=== PATIENT | male | born 1955 | race Caucasian/White ===

== ENCOUNTER 2017-03-07 14:27 | Observation (INO) | payer BC ==
[~2017-03-07] VITALS: Ht 185.4 cm; Wt 123.4 kg
--- NOTE | ~2017-03-07 | OP ---
Record Of Operation [facility] [address] [place]. [address] NAME: VICTORINA GUPTA : 57 STATUS : DIS Kimberlee PAT#: [id number] AGE: 61 ADM/REG DATE : 03/07/17 MR#: [id number] REPORT SERV DATE: 03/08/17 DICTATED BY: ARMAND GODOY DATE: 03/08/17 REPORT STATUS : Draft TRANSCRIBED BY: MODMarques DATE: 03/08/17 DATE OF PROCEDURE: 03/08/2017 PREOPERATIVE DIAGNOSIS: Left knee hematoma approximately three and a half weeks, status post left total knee complex revision. POSTOPERATIVE DIAGNOSIS: Left knee hematoma approximately three and a half weeks, status post left total knee complex revision. PROCEDURE: Left knee arthroscopic I and D. 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 DESCRIPTION OF PROCEDURE: The patient was taken to the operating room and placed supine on the table in normal fashion without incident. General anesthetic was induced per the anesthesiologist. The patient was carefully positioned, padded, prepped, and draped in normal sterile fashion. Left lower extremity exsanguinated, tourniquet inflated to 350. He did receive prophylactic preoperative antibiotics. Two standard cross ports were placed, medial one under direct visualization. A spinal needle examination of the knee revealed abundant hematoma throughout the joint and some mild arthrofibrosis. This was all meticulously debrided with a shaver and then sealed with a contour-type device. I changed portals and did the same through the opposite portals as well. I back for a third time and changed portals one more time just to be sure and get as much hematoma out as possible particularly around the medial and lateral gutters, and all this through the supracondylar space. There was no evidence of infection, although I did send the fluid initially came out from inserting the scope for cultures. Before and after pictures were taken. Instruments were removed and wounds were closed and dressed sterilely. The patient was awakened and taken to the postanesthesia care unit without incident. COMPLICATIONS: None. SPECIMENS: Cultures as described. BLOOD LOSS: Trace. WTB/MODL Jesus Godoy M.D. / [id number] CC: Record Of Operation [place] [id number] Hilliard [facility] [place] [id number] NAME: VICTORINA GUPTA : 57 STATUS : DIS Kimberlee PAT#: [id number] AGE: 61 ADM/REG DATE : 03/07/17 MR#: [id number] REPORT SERV DATE: 03/08/17 DICTATED BY: ARMAND GODOY DATE: 03/08/17 REPORT STATUS : Draft TRANSCRIBED BY: MODL DATE: 03/08/17 Jesus Godoy M.D.
--- NOTE | ~2017-03-07 | HP ---
History And Physical [place] [id number] [facility] [place]. [address] NAME: VICTORINA GUPTA : 57 STATUS : DIS Kimberlee PAT#: [id number] AGE: 61 ADM/REG DATE : 03/07/17 MR#: [id number] REPORT SERV DATE: 03/08/17 DICTATED BY: ARMAND BURNETT DATE: 03/08/17 REPORT STATUS : Draft TRANSCRIBED BY: MODL DATE: 03/08/17 DATE OF ADMISSION: 03/07/2017 CHIEF COMPLAINT: Left knee pain. HISTORY: This is a 61-year-old male about 3-1/2 weeks status post complex left total knee revision arthroplasty. After he had a primary surgery done by another surgeon. He was doing well until he had a sudden increase in pain. He had been seen in the office, had ultrasound for a hematoma, but it got progressively worse such that this Thursday night, he came into the emergency room with severe increasing knee pain. No peripheral neurovascular symptoms. He denies any pain or injury elsewhere. Allergies, medications, past medical history, past surgical history, social history, family history are all unchanged from his H and P about 3-1/2 weeks ago for his knee revision here. REVIEW OF SYSTEMS: Otherwise negative except for above. PHYSICAL EXAMINATION: GENERAL: He is alert and oriented x3, in no apparent distress. HEENT: Atraumatic, normocephalic. NECK: Supple. CHEST: Symmetric, nontender. LUNGS: Per AA evaluation. CV: Regular. ABDOMEN: Soft. No mass. EXTREMITIES: Both upper extremities, right lower extremity without acute trauma. Left knee tender mildly, erythematous, obviously swollen, compartment supple. 2+ pulses. NEURO: Sensorimotor without deficit. Severe pain with any range of motion. In the ER, he had an aspirate that revealed a few drops of very thick blood only. I discussed this with the ER provider. ASSESSMENT: Left knee postop hematoma, failed nonoperative treatments. PLAN: Left knee arthroscopic I and D. Risks, benefits, etc. explained, and the patient wishes to proceed. WTB/MODL W. Thong Burnett M.D. / [id number]
[~2017-03-07 14:27] MED LIST: ASAB PO; BETAPACE80 PO; C5 PO; COZ50 PO; JANUMET XR 50-1 EAC1 PO; LAN25 PO; LANTUSCART SC; LIPITOR20 PO; NEUPRO 6MG6 MG/24 HR TOP; NOVOPEN SC; OXYCOD PO; OXYCODONE PO; OXYCON20 PO; OXYIR5 MG; REQUIP2 PO; XARELTO20 MG PO; ZOFRAN4 PO
[2017-03-07 15:43] LABS: BASOPHILS 0.6 %; BASOPHILS ABSOLUTE 0.02 10/3/uL (0.0-0.16); EOSINOPHILS ABSOLUTE 0.13 10/3/uL (0.0-0.53); HEMOGLOBIN 10.5 g/dL (13.6-17.8); IMMATURE GRANULOCYTES 0.3 %; IMMATURE GRANULOCYTES ABSOLUTE 0.01 10/3/uL (0.0-0.11); LYMPHOCYTES 33.3 %; LYMPHOCYTES ABSOLUTE 1.09 10/3/uL (0.67-4.30); MEAN CORPUSCULAR HEMOGLOB 25.5 pg (26.0-34.0); MEAN CORPUSCULAR VOLUME 82.5 fL (80-100); MEAN PLATELET VOLUME 9.8 fL (9.2-13.0); MONOCYTES 9.8 %; MONOCYTES ABSOLUTE 0.32 10/3/uL (0.21-1.20); RBC DISTRIBUTION WIDTH 15.8 % (12.0-16.0)
[2017-03-07 15:44] LABS: ER CBC TAT 0 Hrs 05 Mins; HEMATOCRIT 33.9 % (40.0-51.0); MANUAL DIFF NO %; PLATELET COUNT 215 10/3/uL (150-400); RED CELL COUNT 4.11 10/6/uL (4.7-6.1); WHITE BLOOD CELLS 3.3 10/3/uL (4.5-10.5)
[2017-03-07 15:56] LABS: C-REACTIVE PROTEIN 3.6 MG/L (<8.0); CALCIUM, SERUM 8.6 MG/DL (8.5-10.4); CHLORIDE, SERUM 103 MMOL/L (96-112); CO2 (CARBON DIOXIDE) 27 MMOL/L (24-34); CREATININE 0.66 MG/DL (0.70-1.30); GFR AFRICAN AMERICAN 122 ML/MIN (>=60); GFR NON AFRICAN AMERICAN 105 ML/MIN (>=60); POTASSIUM, SERUM 4.2 MMOL/L (3.5-5.3); SODIUM, SERUM 138 MMOL/L (135-148)
[2017-03-07 15:57] LABS: BUN (BLOOD UREA NITROGEN) 12 MG/DL (6-23); GLUCOSE, SERUM 153 MG/DL (60-99)
[2017-03-07 16:28] LABS: SED RATE 17 MM/HR (0-15)
[2017-03-07 17:12] LABS: GLUCOSE BODY FL (NOT ORD) 132 MG/DL; PROTEIN BODY FLUID 6.2 G/DL; URIC ACID BF (NOT ORDER) 4.2 MG/DL
[2017-03-07] MEDS ORDERED: C5 PO (17:52)
[2017-03-07] MEDS ORDERED: CLINDA150 PO (17:53)
[2017-03-07] MEDS ORDERED: OXYCOD PO (17:53)
[2017-03-07] MEDS ORDERED: OXYCON20 PO (17:54)
[2017-03-07] MEDS ORDERED: ZOFRAN4 PO (17:55)
[2017-03-07] MEDS ORDERED: REQUIP1 PO (17:55)
[2017-03-07] MEDS ORDERED: LANTUSCART SC (17:56)
[2017-03-07] MEDS ORDERED: NOVOPEN SC (17:56)
[2017-03-07] MEDS ORDERED: LIPITOR20 PO (17:57)
[2017-03-07] MEDS ORDERED: BETAPACE80 PO (17:58)
[2017-03-07] MEDS ORDERED: COZ50 PO (17:58)
[2017-03-07] MEDS ORDERED: LAN25 PO (17:58)
[2017-03-07] MEDS ORDERED: DSS PO (18:00)
[2017-03-07 18:13] LABS: PARTIAL THROMBO TIME 33.7 SEC (22.5-37.2)
[2017-03-07 18:18] LABS: INTERNATIONAL NORMAL RATI 1.5 UNITS (-)
[2017-03-07 18:20] LABS: PROTIME (NOT ORD) 18.1 SEC (12.0-14.5)
[2017-03-07 18:23] LABS: BD FL LYMPH (NOT ORD) 43 %; BF BASO (NOT OF) 0 %; BF LARGE MONONUCLEAR 4 %; BODY FLUID EOS (NOT ORD) 2 %; BODY FLUID SEG (NOT ORD) 51 %
[2017-03-07 18:24] LABS: BD FL SOURCE (NOT ORD) SYHNOVIAL
[2017-03-07 18:25] LABS: BF TOTAL CELL CT (NOT ORD 1065 /MM3; BODY FLUID RBC (NOT ORD) 2665000 /MM3
[2017-03-08 04:47] LABS: BASOPHILS 0.3 %; BASOPHILS ABSOLUTE 0.01 10/3/uL (0.0-0.16); EOSINOPHILS 6.8 %; HEMATOCRIT 32.6 % (40.0-51.0); HEMOGLOBIN 10.1 g/dL (13.6-17.8); LYMPHOCYTES 37.3 %; LYMPHOCYTES ABSOLUTE 1.09 10/3/uL (0.67-4.30); MEAN CORPUSCULAR HEMOGLOB 25.4 pg (26.0-34.0); MEAN CORPUSCULAR VOLUME 82.1 fL (80-100); MEAN PLATELET VOLUME 9.3 fL (9.2-13.0); MONOCYTES ABSOLUTE 0.32 10/3/uL (0.21-1.20); NEUTROPHILS 44.6 %; PLATELET COUNT 188 10/3/uL (150-400); RBC DISTRIBUTION WIDTH 15.7 % (12.0-16.0); RED CELL COUNT 3.97 10/6/uL (4.7-6.1); WHITE BLOOD CELLS 2.9 10/3/uL (4.5-10.5)
[2017-03-08 04:48] LABS: MANUAL DIFF NO %
[2017-03-08 04:54] LABS: INTERNATIONAL NORMAL RATI 1.4 UNITS (-); PARTIAL THROMBO TIME 33.2 SEC (22.5-37.2)
[2017-03-08 05:01] LABS: BUN (BLOOD UREA NITROGEN) 12 MG/DL (6-23); CALCIUM, SERUM 8.6 MG/DL (8.5-10.4); CHLORIDE, SERUM 103 MMOL/L (96-112); CO2 (CARBON DIOXIDE) 30 MMOL/L (24-34); CREATININE 0.59 MG/DL (0.70-1.30); GFR AFRICAN AMERICAN 128 ML/MIN (>=60); GFR NON AFRICAN AMERICAN 110 ML/MIN (>=60); GLUCOSE, SERUM 173 MG/DL (60-99); POTASSIUM, SERUM 4.3 MMOL/L (3.5-5.3); SODIUM, SERUM 139 MMOL/L (135-148)
[2017-03-08] MEDS ORDERED: PCET PO (15:54)
[2017-03-08] MEDS ORDERED: DURICEF PO (15:55)
== END 2017-03-08 17:12 | disposition home or self-care (01) ==
LOC: CANRESERV → ENRESERV → ENRESERVDT → ENRESERVTM → ER 14:27 → CDU1 17:54 → CDU2 18:15 → SDC/OF 03-08 10:13 → CDU2 03-08 12:49
PROVIDERS: Emergency Medicine; Physician Assistant; Specialist
PROC: 0S9D4ZZ Drainage of Left Knee Joint, Percutaneous Endoscopic Approach (ICD-10-PCS; principal; 2017-03-08 10:15)
DX: M96.840 Postprocedural hematoma of a musculoskeletal structure following a musculoskeletal system procedure (principal); M24.662 Ankylosis, left knee; I48.91 Unspecified atrial fibrillation; E11.9 Type 2 diabetes mellitus without complications; G47.33 Obstructive sleep apnea (adult) (pediatric); Z99.81 Dependence on supplemental oxygen; Z79.01 Long term (current) use of anticoagulants; Z95.5 Presence of coronary angioplasty implant and graft; Z88.0 Allergy status to penicillin; Z88.8 Allergy status to other drugs, medicaments and biological substances; Z87.891 Personal history of nicotine dependence; Z96.652 Presence of left artificial knee joint; Z98.890 Other specified postprocedural states
CPT/HCPCS: 71020; 80048; 82945; 82962; 84157; 84560; 85025; 85610; 85652; 85730; 86140; 87015; 87070; 87075; 87102; 87116; 87205; 89051; 89060; 93005; 96374; 96375; 96376; 99284; A9270-GY; G0378; J1170; J2250; J2270; J2274; J2405; J3010; J3370